=== PATIENT | male | born 1980 | race Caucasian/White ===

== ENCOUNTER → 2016-09-23 | Outpatient (CLI) | payer OTHER ==
[~2016-09-23] MED LIST: DICL75TA PO; IOHEXOL 180 MG/ML 10 ML VIAL. ONE; METH-37 PO; OXYC-244 PO; methylPREDNISolone ACETATE 40 MG/ML VIAL. ONE; methylPREDNISolone ACETATE 80 MG/ML VIAL. ONE
--- NOTE | 2016-09-24 00:43 | PAIN ---
DATE OF SERVICE: 09/23/2016 INITIAL CONSULTATION CHIEF COMPLAINT: Low back and bilateral lower extremity pain and numbness, left greater than right. HISTORY OF PRESENT ILLNESS: The patient is a 36-year-old male who presents with history of pain since June 2016, suddenly occurring, but not a result of any specific injury or action he is aware of. 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 The patient reports now his pain and numbness especially in the low back, bilateral lower extremities, mostly in the posterior gluteus, posterior thighs, posterior lower legs radiating in this pattern, worse on the left than the right with numbness, is constant, sharp, throbbing and cold sensation as well. The patient reports it awakens him from sleep at least 3-4 times at night, does not affect bowel or bladder control; however, does affect his ability to walk. After about 15-20 minutes, he has to stop and rest because of the sensation of tingling and cold sensation gets much worse, especially in the left leg. The patient reports it is better with sitting or lying down, but it again if he lies on his left side at night, does awaken from sleep fairly consistently. The patient has tried oxycodone, diclofenac, methocarbamol, all of which have eased the pain to some extent by about 20-25%, but only like combining all 3 of these. The patient has had no other physical therapies, no other chiropractic treatment. He is doing some stretching on his own at home with low back, but this is only temporary improvement. The patient reports his disability rating from 0 to 10, 10 being the worst, it is a 10 with family and home responsibilities, recreation, social activity, occupation, sexual behavior, 7 with self care and 4 with life support activities. The patient reports no loss of motor function, but his legs do fatigue more easily ____especially on the left side. PAST MEDICAL HISTORY: Significant for arthritis, cigarette smoking 1 pack a day; however, the patient has been in good health. PREVIOUS SURGERY: Include ear tubes as a child. No other surgeries. CURRENT MEDICATIONS: Include oxycodone, diclofenac and methocarbamol. ALLERGIES: The patient has no known drug allergies. FAMILY HISTORY: Negative for any illness or chronic disease he is aware of. SOCIAL HISTORY: The patient smokes 1 pack of cigarettes a day, does not drink alcohol, is , lives with his spouse and one child at home, lives in [place], [place]. REVIEW OF SYSTEMS: The patient's review of systems is positive for those items mentioned in history of present illness. All systems reviewed and otherwise negative. It is complete, full and well documented on the patient's chart. PHYSICAL EXAMINATION: GENERAL: Blood pressure 129/88, pulse 76, respirations 20, temperature 97.5 degrees Fahrenheit, weight is 241 pounds, height is 6 feet 4 inches. GENERAL: The patient is awake, alert, oriented, appropriate, very pleasant demeanor. HEENT: Head is normocephalic and atraumatic. Extraocular movements are intact and symmetrical. Oral cavity, mucous membranes moist and pink. Dentition is intact. NECK: Shows anterior throat supple without palpable lymphadenopathy noted. Swallow reflex is symmetrical. Neck shows good rotation and motion both laterally greater than 45 degrees right and left as well as full extension and full forward flexion without difficulty or pain reported. CHEST: Shows normal on inspection. Breath sounds are clear to auscultation bilaterally. HEART: Shows S1 and S2 clear. No murmurs, rubs or gallops are noted. Abdomen is normal on inspection soft, nontender, nondistended. No palpable organomegaly is noted. No rebound or guarding demonstrated. BACK: The patient's back shows spine grossly midline, normal-appearing cervical lordotic curvature, thoracic kyphotic curvature and normal lordotic lumbar curvature. No previous bruises, lesions, rashes or scars are noted throughout the spine. Lumbar paraspinous musculature shows some moderate tenderness with palpation in the lower distribution of the lumbar paraspinous muscles, but is symmetrical on inspection, no atrophy, hypertrophy, no trigger points, no radiation of pain, no tenderness over the spinous processes themselves. No tenderness over the sacrum and sacroiliac regions. The patient shows good rotational motion both laterally greater than 10 degrees right and left as well as extension greater than 10 degrees, forward flexion 45 degrees without exacerbation of pain as well. The patient's lower extremities showed deep tendon reflexes at 2+ in the patellar, 1+ tendo-calcaneus tendons are symmetrical. Motor exam is strong with 5/5 dorsiflexion, extension, quadriceps and hamstring flexion equal bilaterally as well. Peripheral pulses are 2+ posterior tibial and dorsalis pedis pulses. No peripheral edema is noted. No clubbing, no cyanosis. Lower extremities are warm and dry to touch, equal in color and appearance. Straight leg raise noted to be positive on the left at about 45 degrees, which is decreased with knee flexion, right side is negative. Gaenslen's and Valentin's maneuvers are negative for reproduction of pain bilaterally. The patient is able to stand, stand on his toes without difficulty or loss of balance, is able to heel toe walk for several steps without difficulty as well as walking with a normal appearing gait for short distance in the office today, not using any assistive devices such as canes or walkers to ambulate. IMPRESSION: 1. This is a 36-year-old male with approximate 3-month history of increasing pain, numbness with paraesthesia in the low back and lower extremities, left greater than right. 2. MRI scan of the lumbar spine showing protrusion eccentric to the left lateral recess at L5-S1, which contacts the descending left S1 nerve root with mild degenerative disk disease at L4-L5 and L5-S1. No impingement of the descending right S1 nerve root, but mild narrowing of the far left lateral recess. 3. Cigarette smoking. 4. History of arthritis. PLAN: Options were discussed with the patient including conservative medical management, physical therapy, interventional techniques and he would like to pursue interventional techniques. We discussed a lumbar epidural steroid injection using description as well as anatomical models to describe the procedure. Risks were then discussed including, but not limited to bleeding, infection, possibility of epidural hematoma and subsequent neurologic compromise, dural puncture, headaches, spinal cord and/or nerve damage, side effects of steroid medication and poor results regarding pain control. The patient understands and wishes to proceed. The patient will return to clinic in approximately 2 weeks for followup, was counseled on return appointment, activity level and side effects to be aware of. DIAGNOSES: Lumbar radiculopathy with lumbar degenerative disk disease, lumbar herniated disk. PROCEDURE: Lumbar epidural steroid injection, translaminar approach at the L5-S1 level using fluoroscopic guidance under sterile prep and drape and using local anesthetic. MEDICATIONS INJECTED: Depo-Medrol 120 mg plus 10 mL of preservative-free normal saline and 2 mL of Isovue contrast. CONDITION AT DISCHARGE: Stable. The patient tolerated procedure well, had no complications. DANITA CLINE MD DR: Peter JOB#: [id number] / [id number]
== END ==
LOC: PNCL 09:39
PROVIDERS: ATTEND Anesthesiology
DX: M51.16 Intervertebral disc disorders with radiculopathy, lumbar region (principal); M19.90 Unspecified osteoarthritis, unspecified site; F17.200 Nicotine dependence, unspecified, uncomplicated
CPT/HCPCS: 62323; J1030; J1040

== ENCOUNTER → 2016-12-09 | Outpatient (CLI) | payer OTHER ==
--- NOTE | 2016-12-10 00:22 | PN ---
DATE: DIAGNOSES: Lumbar radiculopathy with lumbar degenerative disk disease and lumbar herniated disk. HISTORY OF PRESENT ILLNESS: The patient is a 36-year-old male who returns for followup status post lumbar epidural steroid injection 10/01/2016. The patient reports he did very well. The pain began to return a few weeks ago in the low back and left lower extremity as it was previously, but much better and much less in intensity since his injection. The patient reports it has been increasing his activity with greater ease and comfort, and is sleeping well at night. The pain just now has been beginning to return. He also quit smoking for the past 2 months and is feeling better with this as well. The patient reports initially 100% improvement with this injection, but now pain is returning again in the low back, left lower extremity, mostly in the posterior lateral gluteus, posterior thigh, and posterior lower leg. The patient reports no new motor or sensory deficits, no new bowel or bladder incontinence or other complaints. PHYSICAL EXAMINATION: VITAL SIGNS: The patient's blood pressure 141/86, pulse 88, respirations 20, temperature 97.5 degrees Fahrenheit, height is 5 feet 9 inches, and weighs 249 pounds. GENERAL: The patient is awake, alert, oriented, appropriate, very pleasant demeanor. HEENT: Head shows normocephalic, atraumatic. Extraocular movements are intact and symmetrical. Oral cavity, mucous membranes are moist and pink. Dentition is intact. NECK: Shows anterior throat supple without palpable lymphadenopathy noted. Swallow reflex is symmetrical. CHEST: Shows normal on inspection. Breath sounds clear to auscultation bilaterally. HEART: Shows S1 and S2 clear. ABDOMEN: Obese, soft, nontender, and nondistended. No palpable organomegaly. No rebound or guarding demonstrated. BACK: Shows spine grossly in the midline. Lumbar paraspinous muscle shows some moderate tenderness to palpation, but only diffusely in the low and mid lumbar distribution, but symmetrical without evidence of atrophy or hypertrophy. The patient shows good rotation and motion of the lumbar spine, both laterally as well as extension and flexion without difficulty or pain reported. Lower extremities show deep tendon reflexes 2+ in the patellar, 1+ tendo-calcaneus tendons are equal. Motor exam is strong with 5/5 dorsiflexion, extension, quadriceps and hamstring flexion and symmetrical. Options were discussed with the patient, we will proceed. The patient's old chart was reviewed and his current medication regimen and updated. Current review of systems updated today as well. We will proceed with a second lumbar epidural steroid injection today with fluoroscopic guidance. Risks were again discussed including, but not limited to bleeding, infection, possibility of epidural hematoma, subsequent neurologic compromise, dural puncture, headaches, spinal cord and/or nerve damage, side effects to steroid medication and poor results regarding pain control. The patient understands and wishes to proceed. The patient will return to clinic in approximately 2 weeks for followup, was counseled on return appointment, activity level and side effects to be aware of. DIAGNOSIS: Lumbar radiculopathy with lumbar degenerative disk disease, lumbar herniated disk. PROCEDURE: Lumbar epidural steroid injection in translaminar approach at the L5-S1 level using fluoroscopic guidance under sterile prep and drape using local anesthetic. MEDICATIONS INJECTED: Depo-Medrol 120 mg plus 10 mL of preservative-free normal saline and 2 mL of Isovue for contrast. CONDITION AT DISCHARGE: Stable. The patient tolerated the procedure well, had no complications. DANITA CLINE MD DR: MICHELLE/luis JOB#: [id number] / [id number]
== END | disposition home or self-care (01) ==
LOC: PNCL 08:47
PROVIDERS: ATTEND Anesthesiology
DX: M51.16 Intervertebral disc disorders with radiculopathy, lumbar region (principal)
CPT/HCPCS: 62323; J1030; J1040

== ENCOUNTER → 2017-01-11 | Outpatient (CLI) | payer OTHER ==
[~2017-01-11] MED LIST changes: -IOHEXOL 180 MG/ML 10 ML VIAL. ONE; -methylPREDNISolone ACETATE 40 MG/ML VIAL. ONE; -methylPREDNISolone ACETATE 80 MG/ML VIAL. ONE
--- NOTE | 2017-01-11 09:27 | KCIC ---
PROCEDURE Thoracic spine radiographs. HISTORY Right thoracic pain for 1 month COMPARISON None FINDINGS Three views of the thoracic spine are submitted. Thoracic vertebral body stature is maintained. AP alignment is overall adequate, limited evaluation of the more superior thoracic vertebral bodies on lateral views due to overlying bone and soft tissues. There is mild superior thoracic levoscoliosis. Intrapediculate distance is maintained. IMPRESSION There is mild superior thoracic levoscoliosis. Electronically signed by: Sivakumar Bates MD (January 11, 2017 09:25:48)
== END | disposition home or self-care (01) ==
LOC: KCIC 08:44
PROVIDERS: ATTEND Family Medicine
DX: M54.6 Pain in thoracic spine (principal)
CPT/HCPCS: 72072

== ENCOUNTER → 2017-02-13 | Outpatient (CLI) | payer OTHER ==
[~2017-02-13] VITALS: Ht 177.8 cm; Wt 113.4 kg
[~2017-02-13] MED LIST changes: -OXYC-244 PO; +OXYC-327 PO; +SINCALIDE 2.27 MCG in IV NORMAL SALINE 50ML 30 ML IV ONE
--- NOTE | 2017-02-13 10:29 | RAD ---
EXAM: Right upper quadrant ultrasound. HISTORY: Right upper quadrant pain. COMPARISON: None. FINDINGS: Sonographic evaluation of the right upper quadrant was performed. Hyperechogenicity of the hepatic parenchyma is consistent with diffuse hepatic steatosis. This lowers sensitivity for focal lesions. None are seen. The liver is borderline enlarged, spanning 18 cm. The gallbladder is unremarkable without evidence of stones, wall thickening or pericholecystic fluid. There is no sonographic Pollock sign. The common duct measures 4 mm. The visualized portions of the head of the pancreas reveal no abnormality. The right kidney measures 12.5 cm. Cortical thickness and echogenicity are preserved. There is no hydronephrosis. The visualized portions of the abdominal aorta and inferior vena cava are grossly patent and normal in caliber. IMPRESSION: 1. Diffuse hepatic steatosis.
--- NOTE | 2017-02-13 12:29 | RAD ---
Hepatobiliary scan with gallbladder ejection fraction calculation 02/13/2017 Clinical history: Right upper quadrant abdominal pain for 4 months. Technique: After the intravenous administration of 5.0 mCi of Technetium 99m Choletec, imaging of the right upper quadrant of the abdomen was performed using the gamma camera for 60 minutes. 2.27 mcg of CCK was then infused intravenously over 30 minutes. Continued imaging of the right upper quadrant abdomen was performed. A gallbladder ejection fraction was calculated. Findings: Normal uptake and excretion of the radionuclide by the liver is seen. There is no evidence of cystic or common bile duct obstruction. The gallbladder is within normal limits in size and configuration. During the infusion CCK normal emptying of the gallbladder is seen. The gallbladder ejection fraction is 86.6 % which is within normal limits. Impression: Negative study.
== END | disposition home or self-care (01) ==
LOC: US 10:03
PROVIDERS: ATTEND Internal Medicine Gastroenterology
DX: R10.13 Epigastric pain (principal); R10.11 Right upper quadrant pain; K76.0 Fatty (change of) liver, not elsewhere classified
CPT/HCPCS: 76705; 78226; 96374; 96375; J2805; A9537

== ENCOUNTER → 2017-02-22 | Outpatient (CLI) | payer OTHER ==
[~2017-02-22] MED LIST changes: -SINCALIDE 2.27 MCG in IV NORMAL SALINE 50ML 30 ML IV ONE
--- NOTE | 2017-02-22 10:31 | RAD ---
Radionuclide gastric emptying study, 02/22/2017: History: Right upper quadrant abdominal pain and nausea The study was performed utilizing a solid test meal radiolabeled with 2.1 mCi of technetium 99m sulfur colloid. Imaging of the abdomen obtained over 1 hour shows stasis of the material in the stomach with no significant gastric emptying. The gastric time activity curve is flat. IMPRESSION: Markedly delayed gastric emptying.
== END | disposition home or self-care (01) ==
LOC: NM 08:00
PROVIDERS: ATTEND Internal Medicine Gastroenterology
DX: K30 Functional dyspepsia (principal)
CPT/HCPCS: 78264; A9541